=== PATIENT | male | born 1955 | race Caucasian/White ===

== ENCOUNTER 2020-12-05 18:21 | Inpatient (IN) | payer MEDICARE, OTHER ==
[~2020-12-05] VITALS: Ht 185.4 cm; Wt 114.8 kg
[~2020-12-05 18:21] MED LIST: CLON0.1T PO; FERR-38 PO; HYDR-4354 PO; LATA2.5D2 EACHEYE
[2020-12-05] MEDS ORDERED: LISI10TA29 PO (18:34)
[2020-12-05] MEDS ORDERED: DIVA500T4 PO (18:34)
[2020-12-05] MEDS ORDERED: ESCI20TA PO (18:34)
[2020-12-05] MEDS ORDERED: HYDR-894 PO (18:34)
[2020-12-05] MEDS ORDERED: LORA-259 PO (18:34)
--- NOTE | 2020-12-05 18:40 | NUR ---
Pending ER doctor's evaluation, patient is eating dinner with good appetite, calm & cooperative @the moment
--- NOTE | 2020-12-05 18:52 | NUR ---
Medically cleared by Dr Lynn for admission to geriatric MHU.
--- NOTE | 2020-12-05 19:10 | NUR ---
A person named Pat called@[email or web address] [phone] and she said that she wants to talk to certified social workers in health care regarding this patient. Message was left for Gt Carvajal, our certified social workers in health care labor gang supervisor in this hospital.
--- NOTE | 2020-12-05 19:13 | NUR ---
Still for transfer to mental health unit (for geriatric patient), endorsed to 7pm nurse registry [place] accordingly.
--- NOTE | 2020-12-05 19:58 | NUR ---
Pt resting in room 5a and watching TV with NAD noted. SBAR report given to Blayne in MHU via telephone.
[2020-12-05] MEDS ORDERED: ZOLPIDEM 5 MG TABLET PO PRN (20:30)
[2020-12-05] MEDS ORDERED: MAG HYDROX/AL HYDROX/SIMETH 30 ML LIQUID UDC PO PRN (20:30)
[2020-12-05] MEDS ORDERED: MAGNESIUM HYDROXIDE 30 ML LIQUID UDC PO PRN (20:30)
[2020-12-05] MEDS ORDERED: BLOOD SUGAR DIAGNOSTIC 1 EACH STRIP VI ONE (20:30)
[2020-12-05] MEDS ORDERED: METF-494 PO (20:56)
[2020-12-05 20:59] VITALS: BP 162/111
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
[2020-12-06 07:30] VITALS: BP 100/79
[2020-12-06] MEDS: LISINOPRIL 10 MG TABLET PO SCH (12:30)
[2020-12-06] MEDS: DIVALPROEX 500 MG TABLET.DR PO SCH ×2 (14:16→20:55)
[2020-12-06 16:00] VITALS: BP 155/94
[2020-12-06] MEDS: hydrALAZINE HCL 25 MG TABLET PO SCH (16:01)
[2020-12-06] MEDS: ARIPIPRAZOLE 5 MG TABLET PO SCH (16:01)
[2020-12-06] MEDS: METFORMIN XR 500 MG TAB.SR.24H PO SCH (17:38)
[2020-12-06 20:10] VITALS: BP 139/75
[2020-12-06] MEDS ORDERED: DIVALPROEX ER 500 MG TAB.SR.24H PO SCH (21:00)
[2020-12-07 07:30] VITALS: BP 135/75
[2020-12-07 07:43] LABS: BASOPHILS # (AUTO) 0.2 K/uL (0.0-8.0); BASOPHILS % (AUTO) 1.5 % (0.0-2.0); EOSINOPHILS # (AUTO) 0.2 K/uL (0.0-0.7); EOSINOPHILS % (AUTO) 1.7 % (0.0-7.0); HEMATOCRIT 37.6 % (36.7-47.1); HEMOGLOBIN 12.2 g/dL (12.5-16.3); LYMPHOCYTES # (AUTO) 3.6 K/uL (20.0-40.0); LYMPHOCYTES % (AUTO) 34.4 % (20.5-51.5); MEAN CORPUSCULAR HEMOGLOBIN 29.1 uug (23.8-33.4); MEAN CORPUSCULAR HGB CONC 32 g/dL (32.5-36.3); MEAN CORPUSCULAR VOLUME 89.6 fL (73.0-96.2); MONOCYTES % (AUTO) 9.8 % (0.0-11.0); NEUTROPHILS # (AUTO) 5.5 K/uL (1.8-8.9); NEUTROPHILS % (AUTO) 52.6 % (38.5-71.5); PLATELET COUNT (AUTO) 350 K/uL (152-348); RED BLOOD CELL COUNT(AUTO) 4.19 MIL/uL (4.06-5.63)
[2020-12-07 07:51] LABS: WHITE BLOOD COUNT (AUTO) 10.4 K/uL (3.6-10.2)
[2020-12-07 07:58] LABS: CREATININE 1.3 mg/dL (0.6-1.3); POTASSIUM 4.3 mmol/L (3.5-5.1)
[2020-12-07] MEDS: hydrALAZINE HCL 25 MG TABLET PO SCH ×2 (09:04→16:18)
[2020-12-07] MEDS: DIVALPROEX 500 MG TABLET.DR PO SCH ×2 (09:05→20:35)
[2020-12-07] MEDS: ARIPIPRAZOLE 5 MG TABLET PO SCH ×2 (09:05→16:17)
[2020-12-07] MEDS: LISINOPRIL 10 MG TABLET PO SCH (09:05)
[2020-12-07] MEDS: NICOTINE 21 MG/24HR PATCH TD SCH (09:05)
[2020-12-07] MEDS: METFORMIN XR 500 MG TAB.SR.24H PO SCH ×2 (09:05→17:03)
--- NOTE | 2020-12-07 11:09 | NUR ---
Firearms Report: Liquefaction Plant Operator completed and submitted a [employer] firearms report for 5150 grave disability certification. A copy of report has been placed in patient chart.
--- NOTE | 2020-12-07 11:25 | NUR ---
SW Initial Discharge Plan: Patient currently resides at Patient currently resides at an Independent Living located at [address] [place] [address]. Patient would want to go to a SNF. This SW contacted Xiomara ([phone]) to gather collateral, however, was unavailable and left a voicemail. This SW sent clinicals to aedbayo Maldonado ([phone]) to help with placement. This SW will work with patient, treatment team, family, and MD to help coordinate proper discharge.
--- NOTE | 2020-12-07 11:26 | NUR ---
SNF Referral: This SW sent clinicals to adebayo Maldonado ([phone]) to help with placement. This SW faxed patient's H & P notes, medication list, and laboratory list.
--- NOTE | 2020-12-07 11:26 | NUR ---
SW Family Contact: This SW contacted Xiomara ([phone]) to gather collateral, however, was unavailable and left a voicemail.
--- NOTE | 2020-12-07 11:27 | NUR ---
Substance Abuse Intervention: Patient was provided with a brief substance abuse intervention for smoking cigarettes and referred to [facility] ([phone]), [facility] ([phone]), and [facility] ([phone]).
--- NOTE | 2020-12-07 14:49 | NUR ---
SW Contact: This SW was notified by [facility] manager social who stated Pat ([phone]) requested to speak to a manager social and stated might be patient's responsible libertarian. This SW attempted to contact, however, she was unavailable and this SW left a voicemail.
--- NOTE | 2020-12-07 14:52 | NUR ---
SW Contact: This SW contacted patient's person to notify Xiomara ([phone]) this was a nursing facility called [facility] and they stated patient was here back in 2014. They reported that patient does not have any family members.
--- NOTE | 2020-12-07 14:53 | NUR ---
SNF Contact: Joel ([phone]) tear down worker stated that patient is accepted at [facility] and [facility], however, [facility] would need a clearance upon dc before they take pt.
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
--- NOTE | 2020-12-07 15:41 | NUR ---
Individual Therapy: loft worker met with patient for brief counseling and assessed for level of suicidality. loft worker assessed for suicidal thoughts, patient denied suicidal thoughts. He stated he currently does not feel SI and that in the past he has. Patient reported in the past he has only had "thoughts". Patient was vague with his answers and wanted to sleep. SW briefly met with patient to conduct therapy.
[2020-12-07] MEDS ORDERED: DEXTROSE 50% 50 ML DISP.SYRIN IV PRN (15:45)
[2020-12-07 15:59] VITALS: BP 150/84
[2020-12-07] MEDS: BLOOD SUGAR DIAGNOSTIC 1 EACH STRIP VI SCH ×2 (16:34→20:40)
[2020-12-07 19:50] VITALS: BP 132/66
[2020-12-07] MEDS: INSULIN REGULAR, HUMAN 300 UNIT/3 ML VIAL SQ PRN (20:43)
[2020-12-08] MEDS: BLOOD SUGAR DIAGNOSTIC 1 EACH STRIP VI SCH ×4 (06:31→21:05)
--- NOTE | 2020-12-08 06:32 | NUR ---
Shift End Report: Slept 5.30 hours. No s/s of hypo/hyperglycemia. Compliant to plan of care. Vs stable. Continue plan of care.
[2020-12-08 07:30] VITALS: BP 141/76
--- NOTE | 2020-12-08 07:30 | NUR ---
Received patient sitting in the TV lounge. Patient is currently calm and cooperative. No sign of distress noted. Safety measures implemented. Will continue to monitor
[2020-12-08] MEDS: DIVALPROEX 500 MG TABLET.DR PO SCH ×2 (09:34→21:12)
[2020-12-08] MEDS: ASCORBIC ACID 500 MG TABLET PO SCH (09:34)
[2020-12-08] MEDS: LISINOPRIL 10 MG TABLET PO SCH (09:35)
[2020-12-08] MEDS: ARIPIPRAZOLE 5 MG TABLET PO SCH ×2 (09:35→17:03)
[2020-12-08] MEDS: hydrALAZINE HCL 25 MG TABLET PO SCH ×2 (09:35→17:04)
[2020-12-08] MEDS: FERROUS SULFATE 325 MG TABEC PO SCH (09:35)
[2020-12-08] MEDS: NICOTINE 21 MG/24HR PATCH TD SCH (09:36)
[2020-12-08] MEDS: METFORMIN XR 500 MG TAB.SR.24H PO SCH ×2 (09:36→17:03)
--- NOTE | 2020-12-08 11:40 | NUR ---
SW Note: This SW spoke with patient in regards to discharge plan. This SW explained that he is unable to be accepted to a nursing facility due to an open case investigation. Patient was aware of this and he appeared agitated but accepting.
[2020-12-08] MEDS: LORAZEPAM 0.5 MG TABLET PO PRN (11:41)
--- NOTE | 2020-12-08 11:41 | NUR ---
SW Independent Living: This SW spoke with patient's Independent Living admin Pat ([phone]) who stated she is willing to accept patient back upon discharge.
[2020-12-08 15:32] VITALS: BP 165/64
--- NOTE | 2020-12-08 18:36 | NUR ---
Patient is in chair in the dining room. No sign of distress noted. Patient has been compliant with medications. He can be agitated at times. gave ativan upon patient's request. Safety in place. Will endorse to oncoming nurse.
[2020-12-08 20:14] VITALS: BP 154/75
[2020-12-09] MEDS: TEMAZEPAM 7.5 MG CAPSULE PO PRN (01:42)
--- NOTE | 2020-12-09 02:48 | NUR ---
RECEIVED PATIENT IN HIS W/C IN THE ACTIVITY ROOM INTERACTING WITH PEERS. NOTED IRRITABLE WHEN QUESTIONS ARE ASKED BUT ANSWERS THEM. ADMITTED TO OCCASIONALLY FEELING SUICIDAL.COMPLIANT WITH MEDS AND CARE. BLOOD SUGAR CHECK WAS 146 WITH COVERAGE GIVEN. VISUAL CHECKS MADE ON HIM FOR SAFETY. WILL CONTINUE TO MONITOR.
--- NOTE | 2020-12-09 06:04 | NUR ---
SLEPT FOR 6;30 HOURS. HAD RESTORIL AT 1;42. BLOOD SUGAR CHECK IS 124.
[2020-12-09] MEDS: BLOOD SUGAR DIAGNOSTIC 1 EACH STRIP VI SCH ×4 (06:40→21:19)
[2020-12-09] MEDS: ACETAMINOPHEN 325 MG TABLET PO PRN (06:53)
[2020-12-09 07:30] VITALS: BP 145/32
[2020-12-09 07:57] LABS: BASOPHILS # (AUTO) 0.1 K/uL (0.0-8.0); BASOPHILS % (AUTO) 1.3 % (0.0-2.0); EOSINOPHILS # (AUTO) 0.2 K/uL (0.0-0.7); HEMATOCRIT 35.8 % (36.7-47.1); HEMOGLOBIN 11.9 g/dL (12.5-16.3); LYMPHOCYTES # (AUTO) 2.8 K/uL (20.0-40.0); LYMPHOCYTES % (AUTO) 33.6 % (20.5-51.5); MEAN CORPUSCULAR HEMOGLOBIN 29.8 uug (23.8-33.4); MEAN CORPUSCULAR HGB CONC 33 g/dL (32.5-36.3); MEAN CORPUSCULAR VOLUME 89.6 fL (73.0-96.2); MONOCYTES # (AUTO) 0.8 K/uL (2.0-10.0); NEUTROPHILS # (AUTO) 4.5 K/uL (1.8-8.9); NEUTROPHILS % (AUTO) 53.1 % (38.5-71.5); PLATELET COUNT (AUTO) 331 K/uL (152-348); WHITE BLOOD COUNT (AUTO) 8.4 K/uL (3.6-10.2)
[2020-12-09 08:16] LABS: BILIRUBIN,TOTAL 0.3 mg/dL (0.2-1.0); CREATININE 1.1 mg/dL (0.6-1.3); POTASSIUM 4.4 mmol/L (3.5-5.1); TOTAL PROTEIN, SERUM 7.9 g/dL (6.4-8.2)
[2020-12-09] MEDS: hydrALAZINE HCL 25 MG TABLET PO SCH ×2 (09:24→16:16)
[2020-12-09] MEDS: ASCORBIC ACID 500 MG TABLET PO SCH (09:25)
[2020-12-09] MEDS: ARIPIPRAZOLE 5 MG TABLET PO SCH ×2 (09:25→16:15)
[2020-12-09] MEDS: METFORMIN XR 500 MG TAB.SR.24H PO SCH ×2 (09:25→17:03)
[2020-12-09] MEDS: FERROUS SULFATE 325 MG TABEC PO SCH (09:25)
[2020-12-09] MEDS: DIVALPROEX 500 MG TABLET.DR PO SCH (09:25)
[2020-12-09] MEDS: LISINOPRIL 10 MG TABLET PO SCH (09:25)
[2020-12-09] MEDS: NICOTINE 21 MG/24HR PATCH TD SCH (09:26)
--- NOTE | 2020-12-09 11:54 | NUR ---
WOUND CARE CONSULT: PT SEEN FOR SKIN ASSESSMENT AND NOTED TO HAVE HEMOSIDERIN STAINING OF LOWER LEGS, DRY LESIONS TO FOREHEAD AND LEFT EAR, PRESENT ON ADMISSION. PT NOTED TO HAVE REDNESS/RASH TO ABDOMINAL/GROIN FOLDS. RECOMMENDATIONS MADE FOR SKIN PROTECTION. DISCUSSED WITH NURSING STAFF. DEFER TO PMD FOR FACIAL LESIONS. MD IN AGREEMENT WITH PLAN OF CARE.
[2020-12-09] MEDS ORDERED: Z GUARD REMEDY PASTE 57 GM TUBE TOP PRN (12:00)
--- NOTE | 2020-12-09 12:48 | NUR ---
Court Hearing: Patient's court hearing was today and it was upheld for danger to self and GD.
[2020-12-09 16:00] VITALS: BP 165/79
[2020-12-09] MEDS: CLOTRIMAZOLE 1% CREAM 30 GM TUBE TOP SCH (16:16)
[2020-12-09] MEDS: LORAZEPAM 0.5 MG TABLET PO PRN (16:31)
[2020-12-09 20:37] VITALS: BP 128/46
[2020-12-09] MEDS ORDERED: DIVALPROEX 250 MG TABLET.DR PO SCH (21:00)
--- NOTE | 2020-12-09 21:00 | NUR ---
Received patient in bed, cooperative with care and medication. Patient has no complain of pain at this time, uses urinal for bladder elimination, cont to monitor.
[2020-12-09] MEDS: Z GUARD REMEDY PASTE 57 GM TUBE TOP SCH (21:20)
[2020-12-09] MEDS: INSULIN REGULAR, HUMAN 300 UNIT/3 ML VIAL SQ PRN (21:33)
[2020-12-10] MEDS: BLOOD SUGAR DIAGNOSTIC 1 EACH STRIP VI SCH ×4 (06:25→20:23)
[2020-12-10 07:30] VITALS: BP 133/70
[2020-12-10] MEDS: DIVALPROEX 500 MG TABLET.DR PO SCH ×2 (08:24→20:22)
[2020-12-10] MEDS: ASCORBIC ACID 500 MG TABLET PO SCH (08:25)
[2020-12-10] MEDS: hydrALAZINE HCL 25 MG TABLET PO SCH ×2 (08:25→17:33)
[2020-12-10] MEDS: METFORMIN XR 500 MG TAB.SR.24H PO SCH ×2 (08:25→17:33)
[2020-12-10] MEDS: ARIPIPRAZOLE 5 MG TABLET PO SCH ×2 (08:25→17:53)
[2020-12-10] MEDS: LISINOPRIL 10 MG TABLET PO SCH (08:25)
[2020-12-10] MEDS: FERROUS SULFATE 325 MG TABEC PO SCH (08:25)
[2020-12-10] MEDS: NICOTINE 21 MG/24HR PATCH TD SCH (10:26)
[2020-12-10] MEDS: CLOTRIMAZOLE 1% CREAM 30 GM TUBE TOP SCH ×2 (10:27→17:36)
[2020-12-10] MEDS: Z GUARD REMEDY PASTE 57 GM TUBE TOP SCH ×2 (10:28→20:22)
--- NOTE | 2020-12-10 15:15 | NUR ---
Individual Therapy: drug worker met with patient for brief counseling and assessed for level of suicidality. drug worker assessed for suicidal thoughts, patient denied suicidal thoughts. Patient denies currently. Patient is fixated on his Independent Living and unable to focus. SW unable to provide proper therapy at this time.
[2020-12-10] MEDS: LORAZEPAM 0.5 MG TABLET PO PRN (16:17)
--- NOTE | 2020-12-10 16:23 | NUR ---
Gps/Adolescent Coordinator- Patient anxious, verbalized feelings of being frustrated , stated" no one cares about my situation" Asked patient to elaborate more about his situation, claimed " someone needs to check all my lesions, or refer me to some Specialist " Right temporal region dark scab, discolored , left side of his nose reassured patient needed to check with his Medical Doctor.
[2020-12-10 16:36] VITALS: BP 161/76
[2020-12-10] MEDS: INSULIN REGULAR, HUMAN 300 UNIT/3 ML VIAL SQ PRN (17:27)
[2020-12-10 20:16] VITALS: BP 145/82
--- NOTE | 2020-12-10 21:31 | NUR ---
OOB in wheelchair upon initial rounds. AAOx4 Compliant with meds. No signs of suicidal ideation noted. Attended to needs. VSS. Kept comfortable. Stay in the lounge having snacks for quite sometime. Accucheck @ 2100 111. No coverage given. Will monitor patient. No acute distress noted. No behavioral issues noted.
--- NOTE | 2020-12-11 06:21 | NUR ---
End of shift notes: AAOx4 Accucheck 104 this am. Slept for 7 hours. Denies any pain nor any discomfort. Attended to needs. No behavioral issues noted. Calm and cooperative.
[2020-12-11 07:30] VITALS: BP 133/61
[2020-12-11] MEDS: BLOOD SUGAR DIAGNOSTIC 1 EACH STRIP VI SCH ×2 (07:34→12:27)
[2020-12-11] MEDS: FERROUS SULFATE 325 MG TABEC PO SCH (08:26)
[2020-12-11] MEDS: DIVALPROEX 500 MG TABLET.DR PO SCH ×2 (08:26→20:31)
[2020-12-11] MEDS: hydrALAZINE HCL 25 MG TABLET PO SCH ×2 (08:27→17:01)
[2020-12-11] MEDS: ARIPIPRAZOLE 5 MG TABLET PO SCH ×2 (08:28→17:01)
[2020-12-11] MEDS: ASCORBIC ACID 500 MG TABLET PO SCH (08:28)
[2020-12-11] MEDS: LISINOPRIL 10 MG TABLET PO SCH (08:29)
[2020-12-11] MEDS: METFORMIN XR 500 MG TAB.SR.24H PO SCH ×2 (08:31→17:01)
[2020-12-11] MEDS: NICOTINE 21 MG/24HR PATCH TD SCH (08:31)
[2020-12-11] MEDS: CLOTRIMAZOLE 1% CREAM 30 GM TUBE TOP SCH ×2 (08:32→17:03)
[2020-12-11] MEDS: Z GUARD REMEDY PASTE 57 GM TUBE TOP SCH ×2 (08:32→20:32)
--- NOTE | 2020-12-11 10:25 | NUR ---
pt noted to be needy and attention seeking. Frequently asking for assistance when he can do things himself. Pt verbalizing inappropriate requests such as "I need you to teach me to use the urinal" even though he has been using one and their is one on his bedside.
--- NOTE | 2020-12-11 14:20 | NUR ---
Gps/Clinical Specialist- Patient was yelling at the staff who is providing his care, irritable, labile mood, staff has difficulty redirecting patient. interface analyst Juliann called Dr Saldana, order received.
[2020-12-11] MEDS ORDERED: OLANZAPINE 10 MG VIAL IM ONE (15:00)
--- NOTE | 2020-12-11 15:38 | NUR ---
Gps/Dispatcher Clerk- Patient came to the Nurses station and asked for apologized towards JAMES Joe for yelling at him.
[2020-12-11] MEDS: CARBIDOPA/LEVODOPA 25-100MG TABLET PO SCH ×2 (16:20→17:00)
[2020-12-11 16:21] VITALS: BP 157/85
--- NOTE | 2020-12-11 18:52 | NUR ---
Gps/applied biology professor- stayed up in his chair most of the day , attended his group therapy, ate lunch in the dinning room, interacting with his selected peers. Patient noted used urinal at times, and he goes to the bathroom to void. Encouraged to continue initiating simple tasks to assist self with simple toileting . Lower ext, dry flaky and discolored, cream applied. resolving redness to abd'l folds
[2020-12-11 20:23] VITALS: BP 105/91
[2020-12-11] MEDS: ACETAMINOPHEN 325 MG TABLET PO PRN (21:03)
[2020-12-11] MEDS: LORAZEPAM 0.5 MG TABLET PO PRN (21:04)
--- NOTE | 2020-12-12 06:19 | NUR ---
Pt received AOx2-3n in TV room. Denies SI, HI, AH. or VH. Very compliant and pleasant with this fiction and nonfiction prose writer. Patient was in wheelchair but was encouraged to use walker as he will eventually be discharged to Independent Living. Slept a total of 4.15 hours. Safety precautions kept in place. No other issues or concerns at this time, will endorse to day shift.
[2020-12-12 07:30] VITALS: BP 165/90
--- NOTE | 2020-12-12 07:30 | NUR ---
received report from JAMES Gordon. All questions, comments, and concerns were addressed. Received patient awake, alert and oriented.
[2020-12-12] MEDS ORDERED: DIVALPROEX 250 MG TABLET.DR PO SCH ×2 (09:00)
[2020-12-12] MEDS ORDERED: DIVALPROEX 500 MG TABLET.DR PO SCH (09:00)
[2020-12-12] MEDS: CARBIDOPA/LEVODOPA 25-100MG TABLET PO SCH ×3 (09:04→16:40)
[2020-12-12] MEDS: ASCORBIC ACID 500 MG TABLET PO SCH (09:04)
[2020-12-12] MEDS: ARIPIPRAZOLE 5 MG TABLET PO SCH ×2 (09:04→16:40)
[2020-12-12] MEDS: hydrALAZINE HCL 25 MG TABLET PO SCH ×2 (09:05→16:40)
[2020-12-12] MEDS: FERROUS SULFATE 325 MG TABEC PO SCH (09:05)
[2020-12-12] MEDS: METFORMIN XR 500 MG TAB.SR.24H PO SCH ×2 (09:05→18:46)
[2020-12-12] MEDS: LISINOPRIL 10 MG TABLET PO SCH (09:05)
[2020-12-12] MEDS: CLOTRIMAZOLE 1% CREAM 30 GM TUBE TOP SCH ×2 (09:06→16:38)
[2020-12-12] MEDS: NICOTINE 21 MG/24HR PATCH TD SCH (09:06)
[2020-12-12] MEDS: Z GUARD REMEDY PASTE 57 GM TUBE TOP SCH ×2 (09:06→20:17)
[2020-12-12] MEDS: LORAZEPAM 0.5 MG TABLET PO PRN ×2 (09:11→20:17)
[2020-12-12 15:54] VITALS: BP 156/86
[2020-12-12] MEDS: GLUCERNA SHAKE VANILLA 237 ML CAN PO SCH (16:38)
--- NOTE | 2020-12-12 17:33 | NUR ---
patient is alert and oriented. he is anxious, needy, and intrusive, but is cooperative and redirectable. patient is impulsive and labile in mood. patient denies SI/HI, denies AH/VH. patient is adherent with medication, no adverse reaction noted. patient ambulates independently with FWW. able to tolerate food and fluids. patient provided with education about impulse control and to communicate needs to staff appropriately. patient encouraged to participate in the unit therapeutic milieu.
[2020-12-12] MEDS: DIVALPROEX 250 MG TABLET.DR PO SCH (20:17)
[2020-12-12 20:34] VITALS: BP 151/78
[2020-12-13 08:00] VITALS: BP 115/55
[2020-12-13] MEDS: ASCORBIC ACID 500 MG TABLET PO SCH (08:28)
[2020-12-13] MEDS: FERROUS SULFATE 325 MG TABEC PO SCH (08:28)
[2020-12-13] MEDS: METFORMIN XR 500 MG TAB.SR.24H PO SCH ×2 (08:28→16:41)
[2020-12-13] MEDS: ARIPIPRAZOLE 5 MG TABLET PO SCH ×2 (08:29→16:41)
[2020-12-13] MEDS: LISINOPRIL 10 MG TABLET PO SCH (08:29)
[2020-12-13] MEDS: DIVALPROEX 500 MG TABLET.DR PO SCH (08:29)
[2020-12-13] MEDS: CARBIDOPA/LEVODOPA 25-100MG TABLET PO SCH ×3 (08:29→16:41)
[2020-12-13] MEDS: hydrALAZINE HCL 25 MG TABLET PO SCH ×2 (08:29→16:41)
[2020-12-13] MEDS: GLUCERNA SHAKE VANILLA 237 ML CAN PO SCH ×2 (08:30→16:42)
[2020-12-13] MEDS: NICOTINE 21 MG/24HR PATCH TD SCH (08:30)
[2020-12-13] MEDS: CLOTRIMAZOLE 1% CREAM 30 GM TUBE TOP SCH ×2 (08:31→16:42)
[2020-12-13] MEDS: Z GUARD REMEDY PASTE 57 GM TUBE TOP SCH ×2 (08:32→21:01)
[2020-12-13 16:00] VITALS: BP 145/83
--- NOTE | 2020-12-13 19:45 | NUR ---
Received patient wandering hallway w/ aid of his walker. Patient is withdrawn to a degree but also initiated conversation with resume writer. Patient is guarded and spent most of his time in his room with some time (30 minutes) spent in activities room. Patient does try and downplay his psychiatric disorders. Compliant with meds. VSS. No reports of pain.
[2020-12-13 20:00] VITALS: BP 144/86
[2020-12-13] MEDS: DIVALPROEX 250 MG TABLET.DR PO SCH (20:33)
[2020-12-13] MEDS: LORAZEPAM 0.5 MG TABLET PO PRN (20:33)
--- NOTE | 2020-12-14 06:45 | NUR ---
Patient slept (6.5 hours) throughout the night - awoke only to urinate (Urine sent to lab @ 0600 per MD orders). No reports of pain - VSS. Ativan prn given for anxiety with good affect. Addendum: 12/14/20 at 0649 by LEILANI SAMPSON RN effect*
[2020-12-14 06:49] LABS: *CREATININE,URINE 62.2 mg/dL (30-125); *URINE TOTAL PROTEIN RANDOM 28.2 mg/dL (<150/24HR)
[2020-12-14 06:53] LABS: *BILIRUBIN,URIN NEGATIVE (NEGATIVE); *BLOOD, URINE NEGATIVE (NEGATIVE); *CLARITY,URINE SLIGHTLY CLOUDY (CLEAR); *COLOR,URINE YELLOW (YELLOW); *KETONES,URINE NEGATIVE (NEGATIVE); *UROBILINOGEN,URINE 0.2 E.U./dl (NORMAL); LEUKOCYTE ESTERASE ,URINE NEGATIVE (NEGATIVE); NITRITE, URINE NEGATIVE (NEGATIVE); PH,URINE 6.5 (5.0-8.0); UGLUCOSE NEGATIVE (NEGATIVE)
[2020-12-14 07:26] LABS: BACTERIA,URINE NONE SEEN /HPF (NONE SEEN); RBC,URINE 0-3 /HPF (0-3); SQUAMOUS EPITHELIAL CELL,UR FEW /HPF (NONE SEEN)
[2020-12-14 07:27] LABS: MUCUS,URINE FEW /LPF (0-FEW); URINE AMORPHOUS URATE FEW /HPF
[2020-12-14 07:30] VITALS: BP 149/81
--- NOTE | 2020-12-14 07:30 | NUR ---
Received report from JAMES Coburn. All questions, comments, and concerns. Received patient awake, alert and oriented in assigned room. Bed is in low and locked position.
[2020-12-14] MEDS: FERROUS SULFATE 325 MG TABEC PO SCH (08:18)
[2020-12-14] MEDS: ARIPIPRAZOLE 5 MG TABLET PO SCH ×2 (08:18→16:59)
[2020-12-14] MEDS: CARBIDOPA/LEVODOPA 25-100MG TABLET PO SCH ×3 (08:18→16:59)
[2020-12-14] MEDS: ASCORBIC ACID 500 MG TABLET PO SCH (08:18)
[2020-12-14] MEDS: hydrALAZINE HCL 25 MG TABLET PO SCH ×2 (08:18→16:59)
[2020-12-14] MEDS: NICOTINE 21 MG/24HR PATCH TD SCH (08:18)
[2020-12-14] MEDS: METFORMIN XR 500 MG TAB.SR.24H PO SCH ×2 (08:18→17:00)
[2020-12-14] MEDS: DIVALPROEX 500 MG TABLET.DR PO SCH (08:18)
[2020-12-14] MEDS: Z GUARD REMEDY PASTE 57 GM TUBE TOP SCH ×2 (08:19→20:10)
[2020-12-14] MEDS: LISINOPRIL 10 MG TABLET PO SCH (08:19)
[2020-12-14] MEDS: CLOTRIMAZOLE 1% CREAM 30 GM TUBE TOP SCH ×2 (08:19→16:59)
[2020-12-14] MEDS: GLUCERNA SHAKE VANILLA 237 ML CAN PO SCH ×2 (08:32→18:19)
--- NOTE | 2020-12-14 10:59 | NUR ---
Patient is alert and oriented. He is guarded and anxious, but is cooperative and redirectable. Patient has appropriate interaction with others. Patient is adherent with medications, no adverse reaction noted. Patient denies SI/HI, denies AH/VH. He is able to ambulate independently with wheelchair. Tolerates food and fluids well. Patient able to communicate needs to staff. Encouraged to participate in the unit groups and therapeutic milieu. Educated about impulse control.
--- NOTE | 2020-12-14 11:12 | NUR ---
SW Independent Living: This SW contacted Independent Living admin [facility] ([phone]) and left a voicemail that patient will be discharged 12/15. This SW requested [facility] to contact this to coordinate dc.
--- NOTE | 2020-12-14 14:26 | NUR ---
SW Independent Living: This SW received a phone call from Independent Living admin [facility] ([phone]) who stated patient is welcomed back on 12/15.
[2020-12-14 16:00] VITALS: BP 133/82
--- NOTE | 2020-12-14 16:10 | NUR ---
Individual Therapy: adz worker met with patient for brief counseling and assessed for level of suicidality. adz worker assessed for suicidal thoughts, patient denied suicidal thoughts. Patient denies SI. Patient appeared with euthymic mood and stated he is excited to go back to his Independent Living. Patient expressed that he has goals for himself once he returns. SW actively listened.
[2020-12-14 20:00] VITALS: BP 147/76
[2020-12-14] MEDS ORDERED: DIVALPROEX 250 MG TABLET.DR PO SCH (21:00)
[2020-12-14] MEDS: TEMAZEPAM 7.5 MG CAPSULE PO PRN (22:22)
--- NOTE | 2020-12-15 06:24 | NUR ---
PATIENT ALERT ORIENTED, NO COMPLAIN OF PAIN, COOPERATIVE WITH CARE, AND MEDICATION, CONT TO MONITOR.
[2020-12-15 07:07] LABS: BASOPHILS % (AUTO) 0.3 % (0.0-2.0); EOSINOPHILS # (AUTO) 0.1 K/uL (0.0-0.7); EOSINOPHILS % (AUTO) 1.3 % (0.0-7.0); HEMATOCRIT 35.4 % (36.7-47.1); HEMOGLOBIN 11.8 g/dL (12.5-16.3); LYMPHOCYTES # (AUTO) 2.8 K/uL (20.0-40.0); LYMPHOCYTES % (AUTO) 30.6 % (20.5-51.5); MEAN CORPUSCULAR HEMOGLOBIN 29.1 uug (23.8-33.4); MEAN CORPUSCULAR HGB CONC 33 g/dL (32.5-36.3); MEAN CORPUSCULAR VOLUME 87.6 fL (73.0-96.2); MONOCYTES # (AUTO) 0.8 K/uL (2.0-10.0); MONOCYTES % (AUTO) 8.8 % (0.0-11.0); NEUTROPHILS # (AUTO) 5.4 K/uL (1.8-8.9); PLATELET COUNT (AUTO) 284 K/uL (152-348); RED BLOOD CELL COUNT(AUTO) 4.03 MIL/uL (4.06-5.63); WHITE BLOOD COUNT (AUTO) 9.2 K/uL (3.6-10.2)
[2020-12-15 07:21] LABS: BILIRUBIN,TOTAL 0.3 mg/dL (0.2-1.0); CREATININE 1.1 mg/dL (0.6-1.3); POTASSIUM 4.2 mmol/L (3.5-5.1); TOTAL PROTEIN, SERUM 7.2 g/dL (6.4-8.2)
[2020-12-15 07:30] VITALS: BP 144/85
--- NOTE | 2020-12-15 07:57 | NUR ---
Discharge Note: Patient will be discharged to [facility] located at [address] [place] [address]; ([phone]) via taxi at 1PM. Admin coordinator from [facility] ([phone]) stated that patient is welcomed back today. Patient does not have any family members to contact at this time. Patient is alert and oriented x4, and would want to return back to his Independent Living. Patient denies suicidal or homicidal ideation. Patient denies visual/auditory hallucinations. Patient will follow up with (Airplane Gastank Liner Assembler) Dr. Miranda at the [facility] and will monitor and provide patients psychotropic medications. Patient was provided referrals to the following substance abuse programs for smoking: [facility] Self[facility]pl[facility] ([phone]); [facility] [address] [place] [address] ([phone]); [address] [address] ([phone]); [facility] ([phone]); [facility] ([phone]); [facility] ([phone]); [facility] ([phone]). Patient presented with euthymic mood and congruent affect.
[2020-12-15 08:55] VITALS: BP 144/85
[2020-12-15] MEDS: ARIPIPRAZOLE 5 MG TABLET PO SCH (08:55)
[2020-12-15] MEDS: hydrALAZINE HCL 25 MG TABLET PO SCH (08:55)
[2020-12-15] MEDS: DIVALPROEX 500 MG TABLET.DR PO SCH (08:55)
[2020-12-15] MEDS: LISINOPRIL 10 MG TABLET PO SCH (08:55)
[2020-12-15] MEDS: ASCORBIC ACID 500 MG TABLET PO SCH (08:55)
[2020-12-15] MEDS: FERROUS SULFATE 325 MG TABEC PO SCH (08:55)
[2020-12-15] MEDS: CARBIDOPA/LEVODOPA 25-100MG TABLET PO SCH ×2 (08:55→12:30)
[2020-12-15] MEDS: METFORMIN XR 500 MG TAB.SR.24H PO SCH (08:55)
[2020-12-15] MEDS: GLUCERNA SHAKE VANILLA 237 ML CAN PO SCH (08:56)
[2020-12-15] MEDS: CLOTRIMAZOLE 1% CREAM 30 GM TUBE TOP SCH (08:56)
[2020-12-15] MEDS: NICOTINE 21 MG/24HR PATCH TD SCH (08:58)
[2020-12-15] MEDS: Z GUARD REMEDY PASTE 57 GM TUBE TOP SCH (08:59)
--- NOTE | 2020-12-15 13:30 | NUR ---
Discharge instructions given to patient. prescription given to patient. Pt verbalized understandings. Belongings ie cellphone, medications, money given back to patient. Valuable forms signed by patient. Pt denies any c/o pain. No sob noted. Pt discharge by taxi.
[2020-12-16] MEDS ORDERED: ASPIRIN 81 MG TAB.CHEW PO SCH (09:00)
== END 2020-12-15 13:30 | disposition home or self-care (01) | DRG 885 ==
LOC: ER 18:21 → GPS 20:05
PROVIDERS: ADMIT Psychiatry & Neurology Psychosomatic Medicine; ATTEND Nurse Practitioner Family
DX: F25.0 Schizoaffective disorder, bipolar type (principal); F01.50 Vascular dementia, unspecified severity, without behavioral disturbance, psychotic disturbance, mood disturbance, and anxiety; N17.0 Acute kidney failure with tubular necrosis; N18.9 Chronic kidney disease, unspecified; R45.851 Suicidal ideations; J98.11 Atelectasis; G40.909 Epilepsy, unspecified, not intractable, without status epilepticus; D64.9 Anemia, unspecified; F41.9 Anxiety disorder, unspecified; G20 Parkinson's disease; Z85.828 Personal history of other malignant neoplasm of skin; F32.9 Major depressive disorder, single episode, unspecified; F39 Unspecified mood [affective] disorder; F29 Unspecified psychosis not due to a substance or known physiological condition; I12.9 Hypertensive chronic kidney disease with stage 1 through stage 4 chronic kidney disease, or unspecified chronic kidney disease; E11.22 Type 2 diabetes mellitus with diabetic chronic kidney disease; Z79.84 Long term (current) use of oral hypoglycemic drugs; F19.90 Other psychoactive substance use, unspecified, uncomplicated; Z20.822 Contact with and (suspected) exposure to COVID-19
CPT/HCPCS: 36415; 70450; 71045; 80164; 84156; 84300; 85025; A4663; J1815; J2358; J3490